=== PATIENT | male | born 1995 | race African-American/Black ===

== ENCOUNTER 2021-08-27 17:57 | Emergency (ER) | payer MEDICAID ==
[~2021-08-27] VITALS: Ht 175.3 cm; Wt 91.0 kg
[2021-08-27 18:14] VITALS: BP 108/61
[2021-08-27] MEDS ORDERED: ACETAMINOPHEN 325MG TABLET PO ONE (21:15)
== END 2021-08-28 | disposition home or self-care (01) ==
LOC: ER 17:57
DX: S60.221A Contusion of right hand, initial encounter (principal); W01.0XXA Fall on same level from slipping, tripping and stumbling without subsequent striking against object, initial encounter; Y93.9 Activity, unspecified; Y92.9 Unspecified place or not applicable; Z98.890 Other specified postprocedural states
CPT/HCPCS: 29125; 73110; 73130; 99284

== ENCOUNTER 2021-12-28 02:41 | Emergency (ER) | payer MEDICAID ==
[~2021-12-28] VITALS: Ht 172.7 cm; Wt 93.0 kg
[2021-12-28] MEDS ORDERED: HYDROCODONE/ACETAMINOPHEN 5/325MG TABLET PO ONE (03:15)
[2021-12-28 03:20] VITALS: BP 135/80
[2021-12-28] MEDS ORDERED: HYDR-4001 MT (03:24)
== END 2021-12-28 03:40 | disposition left against medical advice (07) ==
LOC: ER 02:41
DX: M79.662 Pain in left lower leg (principal); Z98.890 Other specified postprocedural states
CPT/HCPCS: 99283